=== PATIENT | male | born 1985 | race Caucasian/White ===

== ENCOUNTER 2021-02-15 02:45 | Inpatient (IN) | payer BC ==
[2021-02-15] MEDS ORDERED: PANTOPRAZOLE 40 MG/10 ML VIAL IVP STA (02:50)
[2021-02-15] MEDS ORDERED: MORPHINE SULFATE 4 MG/ML SYRINGE IV STA (02:50)
[2021-02-15] MEDS ORDERED: SODIUM CHLORIDE 0.9% 1,000 ML IV STA (02:50)
[2021-02-15] MEDS ORDERED: SODIUM CHLORIDE 0.9% 2,000 ML IV STA (02:50)
[2021-02-15] MEDS ORDERED: ONDANSETRON 4 MG/2 ML VIAL IVP STA (02:50)
[2021-02-15] MEDS ORDERED: SODIUM CHLORIDE 0.9% 500 ML 500 ML IV STA (02:50)
--- NOTE | 2021-02-15 02:55 | ED ---
Recheck HPI - General Stated Complaint: ABD Pain Time Seen by Provider: 02/15/21 02:48 - Related Data Previous Rx's Medication Instructions Recorded metFORMIN HCL [Glucophage] 500 mg PO BID #60 tab 05/26/16 sitaGLIPtin [Januvia] 50 mg PO DAILY #30 tab 05/26/16 Allergies Allergy/AdvReac Type Severity Reaction Status Date / Time venom-honey bee Allergy Swelling Verified 02/15/21 02:56 [bee venom (honey bee)] Review of Systems ROS Statement: Those systems with pertinent positive or pertinent negative responses have been documented in the HPI. ROS Other: All systems not noted in ROS Statement are negative. Past Medical History Past Medical History: GERD/Reflux Additional Past Medical History / Comment(s): ARTHRITIS IN NECK, HX BROKE BACK IN 3 PLACES(NO SX),BROKE JULIAN WRISTS(CASTED), BROKE RT COLLAR BONE, "HEART BURN", "MIGRAINES", History of Any Multi-Drug Resistant Organisms: None Reported Past Surgical History: No Surgical Hx Reported Additional Past Surgical History / Comment(s): WISDOM TEETH EXTRACTED. Past Anesthesia/Blood Transfusion Reactions: No Reported Reaction Past Psychological History: No Psychological Hx Reported Additional Psychological History / Comment(s): PT LIVES WITH GIRL ELEONORA AND HIS 5 YEAR OLD SON. 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 Past Alcohol Use History: Occasional Past Drug Use History: Marijuana Additional Drug Use History / Comment(s): QUIT MARJUANA 2 YEARS AGO - Past Family History Mother Family Medical History: Diabetes Mellitus Additional Family Medical History / Comment(s): VERY SENSATIVE TO INSULIN Father Additional Family Medical History / Comment(s): GRANDFATHER HAD KIDNEY DISEASE Course Vital Signs 02/15/21 02/15/21 02/15/21 02:47 03:30 04:00 Temperature 97.9 F Pulse Rate 125 H 128 H 112 H Respiratory 28 H 18 18 Rate Blood Pressure 116/78 118/76 122/72 O2 Sat by Pulse 95 98 98 Oximetry Medical Decision Making - Lab Data Result diagrams: 02/15/21 03:17 02/15/21 03:17 Lab Results 02/15/21 02/15/21 02/15/21 Range/Units 02:54 03:17 03:17 WBC 24.1 H (3.8-10.6) k/uL RBC 4.89 (4.30-5.90) m/uL Hgb 14.8 (13.0-17.5) gm/dL Hct 48.4 (39.0-53.0) % MCV 98.9 (80.0-100.0) fL MCH 30.3 (25.0-35.0) pg MCHC 30.6 L (31.0-37.0) g/dL RDW 13.0 (11.5-15.5) % Plt Count 340 (150-450) k/uL MPV 7.1 Neutrophils % 83 % Lymphocytes % 12 % Monocytes % 4 % Eosinophils % 0 % Basophils % 0 % Neutrophils # 20.1 H (1.3-7.7) k/uL Lymphocytes # 2.9 (1.0-4.8) k/uL Monocytes # 0.9 (0-1.0) k/uL Eosinophils # 0.0 (0-0.7) k/uL Basophils # 0.1 (0-0.2) k/uL Hypochromasia Marked Sodium (137-145) mmol/L Potassium (3.5-5.1) mmol/L Chloride (98-107) mmol/L Carbon Dioxide (22-30) mmol/L Anion Gap mmol/L BUN (9-20) mg/dL Creatinine (0.66-1.25) mg/dL Est GFR (CKD-EPI)AfAm (>60 ml/min/1.73 sqM) Est GFR (CKD-EPI)NonAf (>60 ml/min/1.73 sqM) Glucose (74-99) mg/dL POC Glucose (mg/dL) 561 H (75-99) mg/dL POC Glu Cylinder Head Assembler ID Marino Finley Plasma Lactic Acid Johny (0.7-2.0) mmol/L Calcium (8.4-10.2) mg/dL Total Bilirubin (0.2-1.3) mg/dL AST (17-59) U/L ALT (4-49) U/L Alkaline Phosphatase (38-126) U/L Total Protein (6.3-8.2) g/dL Albumin (3.5-5.0) g/dL Amylase (30-110) U/L Lipase (23-300) U/L Urine Color Light Yellow Urine Appearance Clear (Clear) Urine pH 5.0 (5.0-8.0) Ur Specific [place] 1.020 (1.001-1.035) Urine Protein Trace H (Negative) Urine Glucose (UA) 4+ H (Negative) Urine Ketones 4+ H (Negative) Urine Blood Small H (Negative) Urine Nitrite Negative (Negative) Urine Bilirubin Negative (Negative) Urine Urobilinogen <2.0 (<2.0) mg/dL Ur Leukocyte Esterase Negative (Negative) Urine WBC <1 (0-5) /hpf Ur Squamous Epith Cells <1 (0-4) /hpf Urine Mucus Rare H (None) /hpf Serum Alcohol mg/dL Acetone, Qual (Negative) 02/15/21 02/15/21 Range/Units 03:17 03:17 WBC (3.8-10.6) k/uL RBC (4.30-5.90) m/uL Hgb (13.0-17.5) gm/dL Hct (39.0-53.0) % MCV (80.0-100.0) fL MCH (25.0-35.0) pg MCHC (31.0-37.0) g/dL RDW (11.5-15.5) % Plt Count (150-450) k/uL MPV Neutrophils % % Lymphocytes % % Monocytes % % Eosinophils % % Basophils % % Neutrophils # (1.3-7.7) k/uL Lymphocytes # (1.0-4.8) k/uL Monocytes # (0-1.0) k/uL Eosinophils # (0-0.7) k/uL Basophils # (0-0.2) k/uL Hypochromasia Sodium 138 (137-145) mmol/L Potassium 6.7 H* (3.5-5.1) mmol/L Chloride 96 L (98-107) mmol/L Carbon Dioxide 5 L* (22-30) mmol/L Anion Gap 37 mmol/L BUN 25 H (9-20) mg/dL Creatinine 2.29 H (0.66-1.25) mg/dL Est GFR (CKD-EPI)AfAm 42 (>60 ml/min/1.73 sqM) Est GFR (CKD-EPI)NonAf 36 (>60 ml/min/1.73 sqM) Glucose 548 H* (74-99) mg/dL POC Glucose (mg/dL) (75-99) mg/dL POC Glu Cylinder Head Assembler ID Plasma Lactic Acid Johny 6.4 H* (0.7-2.0) mmol/L Calcium 9.8 (8.4-10.2) mg/dL Total Bilirubin 0.5 (0.2-1.3) mg/dL AST 39 (17-59) U/L ALT 45 (4-49) U/L Alkaline Phosphatase 189 H (38-126) U/L Total Protein 8.7 H (6.3-8.2) g/dL Albumin 5.8 H (3.5-5.0) g/dL Amylase 58 (30-110) U/L Lipase 103 (23-300) U/L Urine Color Urine Appearance (Clear) Urine pH (5.0-8.0) Ur Specific [place] (1.001-1.035) Urine Protein (Negative) Urine Glucose (UA) (Negative) Urine Ketones (Negative) Urine Blood (Negative) Urine Nitrite (Negative) Urine Bilirubin (Negative) Urine Urobilinogen (<2.0) mg/dL Ur Leukocyte Esterase (Negative) Urine WBC (0-5) /hpf Ur Squamous Epith Cells (0-4) /hpf Urine Mucus (None) /hpf Serum Alcohol <10 mg/dL Acetone, Qual Positive (Negative) - EKG Data -: EKG Interpreted by Me (EKG sinus tachycardia 141 WI 148 QRS 90 QTC 462) Disposition Clinical Impression: DKA (diabetic ketoacidosis), Acute hyperglycemia Disposition: ADMITTED IP TO THIS HOSP Condition: Serious Is patient prescribed a controlled substance at d/c from ED?: No
[2021-02-15 03:06] LABS: Glucose,Whole Blood 561 mg/dL (75-99)
[2021-02-15] MEDS ORDERED: LORazepam 2 MG/ML INJ IV STA (03:07)
[2021-02-15 03:27] LABS: Basophils # (A) 0.1 k/uL (0-0.2); Basophils % (A) 0 %; Eosinophils % (A) 0 %; HCT 48.4 % (39.0-53.0); HGB 14.8 gm/dL (13.0-17.5); Hypochromasia Marked; Lymphocytes # (A) 2.9 k/uL (1.0-4.8); Lymphocytes % (A) 12 %; MCH 30.3 pg (25.0-35.0); MCHC 30.6 g/dL (31.0-37.0); MCV 98.9 fL (80.0-100.0); Mean Platelet Volume 7.1; Monocytes # (A) 0.9 k/uL (0-1.0); Monocytes % (A) 4 %; Neutrophils # (A) 20.1 k/uL (1.3-7.7); Neutrophils % (A) 83 %; Platelet Count 340 k/uL (150-450); RBC 4.89 m/uL (4.30-5.90); WBC 24.1 k/uL (3.8-10.6)
[2021-02-15 03:28] LABS: Appearance,Urine Clear (Clear); Bilirubin,Urine Negative (Negative); Blood,Urine Small (Negative); Color,Urine Light Yellow; Glucose,Urine (UA) 4+ (Negative); Leukocyte Esterase,Urine Negative (Negative); Mucus,Urine Rare /hpf; Nitrite,Urine Negative (Negative); Protein,Urine Trace (Negative); Squamous Epithelial Cell,Urine <1 /hpf (0-4); Urobilinogen,Urine <2.0 mg/dL (<2.0); WBC,Urine <1 /hpf (0-5)
[2021-02-15 03:40] LABS: AST 39 U/L (17-59); African American GFR (CKD) 42 (>60 ml/min/1.73 sqM); Albumin 5.8 g/dL (3.5-5.0); Alcohol <10 mg/dL; Alkaline Phosphatase 189 U/L (38-126); Amylase 58 U/L (30-110); Anion Gap 37 mmol/L; Blood Urea Nitrogen 25 mg/dL (9-20); Calcium 9.8 mg/dL (8.4-10.2); Chloride 96 mmol/L (98-107); Lipase 103 U/L (23-300); Non-African American GFR(CKD) 36 (>60 ml/min/1.73 sqM); Sodium 138 mmol/L (137-145); Total Bilirubin 0.5 mg/dL (0.2-1.3); Total Protein 8.7 g/dL (6.3-8.2)
[2021-02-15 03:48] LABS: Ketones,Urine 4+ (Negative)
[2021-02-15 03:54] LABS: ALT 45 U/L (4-49)
[2021-02-15 03:57] LABS: Carbon Dioxide 5 mmol/L (22-30); Glucose 548 mg/dL (74-99)
[2021-02-15 03:59] LABS: Potassium 6.7 mmol/L (3.5-5.1)
--- NOTE | 2021-02-15 04:39 | CT ---
EXAMINATION TYPE: CT abdomen pelvis wo con DATE OF EXAM: 02/15/2021 COMPARISON: None HISTORY: hyperglycemia CT DLP: 518.8 mGycm Automated exposure control for dose reduction was used. Images obtained from the diaphragm to the floor the pelvis with no contrast. Lung bases are clear. There is no pleural effusion. Heart size is normal. There is no pericardial eff usion. There is dilated fluid-filled stomach. Liver and spleen are intact. There is no pancreatic mas s. The bile ducts are not dilated. Gallbladder appears normal. There is no adrenal mass. Kidneys have normal size and contour. There is no hydronephrosis. Ureters a re not dilated. There is no retroperitoneal adenopathy. Bladder distends smoothly. There is no inguin al hernia. There is no free fluid in the pelvis. I see no pelvic mass. Appendix is posterior and appe ars normal. There is no mesenteric edema. There is no ascites or free air. There is no evidence of a bowel obstru ction. The lumbar vertebra have normal alignment. Posterior elements are intact. There is slight anterior we dging of T10 and T9 vertebra of 10%. This appears old. The bony pelvis is intact. Hip joints are inta ct. IMPRESSION: Normal appendix. Dilated stomach. Gastric outlet obstruction is possible.
[2021-02-15] MEDS ORDERED: INSULIN REGULAR BOLUS (FROM DRIP BAG) IV ONE (04:41)
[2021-02-15] MEDS ORDERED: SODIUM CHLORIDE 0.9% 1,000 ML IV ONE (04:41)
[2021-02-15] MEDS ORDERED: NALOXONE 0.4 MG/ML 1 ML VIAL IV PRN (04:49)
[2021-02-15] MEDS ORDERED: MORPHINE SULFATE 4 MG/ML SYRINGE IV PRN (04:49)
[2021-02-15] MEDS ORDERED: ONDANSETRON 4 MG/2 ML VIAL IVP PRN (04:49)
[2021-02-15] MEDS ORDERED: INSULIN REGULAR 100 UNIT in SODIUM CHLORIDE 0.9% 100 ML IV SCH (05:00)
[2021-02-15 05:30] LABS: Glucose,Whole Blood 212 mg/dL (75-99)
[2021-02-15 05:30] LABS: Glucose,Whole Blood 228 mg/dL (75-99)
[2021-02-15] MEDS ORDERED: D5-0.45% NACL WITH KCL 20MEQ/L 1,000 ML IV SCH (06:00)
[2021-02-15] MEDS: SODIUM CHLORIDE 0.9% 1,000 ML IV SCH ×6 (06:01→23:45)
[2021-02-15 06:07] LABS: Glucose,Whole Blood 184 mg/dL (75-99)
[2021-02-15 07:16] LABS: Glucose,Whole Blood 140 mg/dL (75-99)
[2021-02-15 07:59] LABS: Glucose,Whole Blood 119 mg/dL (75-99)
[2021-02-15 09:00] LABS: Glucose,Whole Blood 99 mg/dL (75-99)
[2021-02-15 09:57] LABS: Glucose,Whole Blood 86 mg/dL (75-99)
[2021-02-15 10:02] LABS: Phosphorus 3.5 mg/dL (2.5-4.5); Potassium 4.4 mmol/L (3.5-5.1)
[2021-02-15] MEDS: D5-0.9% NACL WITH KCL 20 MEQ/L 1,000 ML IV SCH ×3 (10:30→23:45)
[2021-02-15] MEDS: PANTOPRAZOLE 40 MG/10 ML VIAL IV SCH (10:35)
[2021-02-15 11:03] LABS: Glucose,Whole Blood 92 mg/dL (75-99)
[2021-02-15 11:58] LABS: Glucose,Whole Blood 104 mg/dL (75-99)
[2021-02-15 11:59] LABS: African American GFR (CKD) >90 (>60 ml/min/1.73 sqM); Anion Gap 13 mmol/L; Blood Urea Nitrogen 18 mg/dL (9-20); Carbon Dioxide 15 mmol/L (22-30); Chloride 106 mmol/L (98-107); Glucose 96 mg/dL (74-99); Non-African American GFR(CKD) >90 (>60 ml/min/1.73 sqM); Phosphorus 3.8 mg/dL (2.5-4.5); Potassium 4.6 mmol/L (3.5-5.1); Sodium 134 mmol/L (137-145)
[2021-02-15 12:55] LABS: Glucose,Whole Blood 129 mg/dL (75-99)
[2021-02-15 13:22] LABS: Glucose,Whole Blood 131 mg/dL (75-99)
--- NOTE | 2021-02-15 14:15 | P.HPIM ---
History of Present Illness 35-year-old male came in with severe abdominal pain in the epigastric area and nausea vomiting found to be in diabetic ketoacidosis. Patient states that his complaint with his insulin but the insulin he was taking for last few days may not be effective as a it was in the lunch box which was heated up because of the summer weather. Patient is found to have acute renal failure and severe anion gap metabolic acidosis elevated potassium. Patient is in the care protocol. Patient blood sugars are bit low now patient was transitioned to D5 normal saline with the potassium supplementation as potassium has gone down and presently 4.6. Patient usually uses long-acting insulin about 39 units along with carb counting with each meal. Patient was tachycardic yesterday second secondary to severe dehydration from a diabetic ketoacidosis presently improved. REVIEW OF SYSTEMS: CONSTITUTIONAL: No fever, no malaise, no fatigue. HEENT: No recent visual problems or hearing problems. Denied any sore throat. CARDIOVASCULAR: No chest pain, orthopnea, PND, no palpitations, no syncope. PULMONARY: No shortness of breath, no cough, no hemoptysis. GASTROINTESTINAL: As mentioned in HPI NEUROLOGICAL: No headaches, no weakness, no numbness. HEMATOLOGICAL: Denies any bleeding or petechiae. GENITOURINARY: Denies any burning micturition, frequency, or urgency. MUSCULOSKELETAL/RHEUMATOLOGICAL: Denies any joint pain, swelling, or any muscle pain. ENDOCRINE: Denies any polyuria or polydipsia. The rest of the 14-point review of systems is negative. PHYSICAL EXAMINATION: GENERAL: The patient is alert and oriented x3, not in any acute distress. Well developed, well nourished. HEENT: Pupils are round and equally reacting to light. EOMI. No scleral icterus. No conjunctival pallor. Normocephalic, atraumatic. No pharyngeal erythema. No thyromegaly. CARDIOVASCULAR: S1 and S2 present. No murmurs, rubs, or gallops. PULMONARY: Chest is clear to auscultation, no wheezing or crackles. ABDOMEN: Soft, nontender, nondistended, normoactive bowel sounds. No palpable organomegaly. MUSCULOSKELETAL: No joint swelling or deformity. EXTREMITIES: No cyanosis, clubbing, or pedal edema. NEUROLOGICAL: Gross neurological examination did not reveal any focal deficits. SKIN: No rashes. Assessment and plan -Diabetic ketoacidosis: Patient will continue on DKA protocol patient blood sugars are low but still has anion gap because of which will continue with her D5 normal saline with a hiatal rule out an insulin infusion. Once the gap resolves patient will be transitioned to subcutaneous insulin and patient can be started on diet at the time -Hyperkalemia secondary to metabolic acidosis which resolved with the resolution of metabolic acidosis -Anion gap metabolic ACIDOSIS secondary to lactic acidosis and diabetic acidosis -Acute renal failure secondary to severe dehydration from DKA., Improved with IV fluids -Nicotine abuse: Counseling was provided -Abdominal pain secondary to diabetic ketoacidosis DVT prophylaxis: Early ambulation, GI prophylaxis Protonix Past Medical History Past Medical History: GERD/Reflux Additional Past Medical History / Comment(s): ARTHRITIS IN NECK, HX BROKE BACK IN 3 PLACES(NO SX),BROKE JULIAN WRISTS(CASTED), BROKE RT COLLAR BONE, "HEART BURN", "MIGRAINES", History of Any Multi-Drug Resistant Organisms: None Reported Past Surgical History: No Surgical Hx Reported Additional Past Surgical History / Comment(s): WISDOM TEETH EXTRACTED. Past Anesthesia/Blood Transfusion Reactions: No Reported Reaction Past Psychological History: No Psychological Hx Reported Additional Psychological History / Comment(s): PT LIVES WITH GIRL ELEONORA AND HIS 5 YEAR OLD SON. 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 Past Alcohol Use History: Occasional Past Drug Use History: Marijuana Additional Drug Use History / Comment(s): QUIT MARJUANA 2 YEARS AGO - Past Family History Mother Family Medical History: Diabetes Mellitus Additional Family Medical History / Comment(s): VERY SENSATIVE TO INSULIN Father Additional Family Medical History / Comment(s): GRANDFATHER HAD KIDNEY DISEASE Medications and Allergies Home Medications Medication Instructions Recorded Confirmed Type Insulin Aspart [NovoLOG Flexpen] See Protocol SQ AC-TID 02/15/21 02/15/21 History Insulin Degludec [Tresiba 30 units SQ HS 02/15/21 02/15/21 History Flextouch U-100] Allergies Allergy/AdvReac Type Severity Reaction Status Date / Time venom-honey bee Allergy Swelling Verified 02/15/21 06:59 [bee venom (honey bee)] Physical Exam Vitals: Vital Signs Temp Pulse Resp BP Pulse Ox 02/15/21 12:59 90 20 123/72 97 02/15/21 11:58 87 22 131/78 99 02/15/21 11:03 98 22 115/74 97 02/15/21 09:59 98.7 F 89 20 124/85 99 02/15/21 09:03 94 24 124/76 98 02/15/21 08:00 98 24 140/84 96 02/15/21 07:16 103 H 18 143/83 98 02/15/21 04:00 112 H 18 122/72 98 02/15/21 03:30 128 H 18 118/76 98 02/15/21 02:47 97.9 F 125 H 28 H 116/78 95 Intake and Output 02/14/21 02/15/21 02/15/21 22:59 06:59 14:59 Intake Total 13.765 Balance 13.765 Intake: Intake, IV Titration 13.765 Amount Insulin Regular 100 unit 13.765 In Sodium Chloride 0.9% 100 ml @ 0.1 UNITS/KG/HR 8.246 mls/hr IV [id number] Rx#:[id number] Other: Weight 81.647 kg Results CBC & Chem 7: 02/15/21 03:17 02/15/21 11:38 Labs: Abnormal Lab Results - Last 24 Hours (Table) 02/15/21 02/15/21 02/15/21 Range/Units 02:54 03:17 03:17 WBC 24.1 H (3.8-10.6) k/uL MCHC 30.6 L (31.0-37.0) g/dL Neutrophils # 20.1 H (1.3-7.7) k/uL Sodium (137-145) mmol/L Potassium (3.5-5.1) mmol/L Chloride (98-107) mmol/L Carbon Dioxide (22-30) mmol/L BUN (9-20) mg/dL Creatinine (0.66-1.25) mg/dL Glucose (74-99) mg/dL POC Glucose (mg/dL) 561 H (75-99) mg/dL Plasma Lactic Acid Johny (0.7-2.0) mmol/L Alkaline Phosphatase (38-126) U/L Total Protein (6.3-8.2) g/dL Albumin (3.5-5.0) g/dL Urine Protein Trace H (Negative) Urine Glucose (UA) 4+ H (Negative) Urine Ketones 4+ H (Negative) Urine Blood Small H (Negative) Urine Mucus Rare H (None) /hpf 02/15/21 02/15/21 02/15/21 Range/Units 03:17 03:17 05:26 WBC (3.8-10.6) k/uL MCHC (31.0-37.0) g/dL Neutrophils # (1.3-7.7) k/uL Sodium (137-145) mmol/L Potassium 6.7 H* (3.5-5.1) mmol/L Chloride 96 L (98-107) mmol/L Carbon Dioxide 5 L* (22-30) mmol/L BUN 25 H (9-20) mg/dL Creatinine 2.29 H (0.66-1.25) mg/dL Glucose 548 H* (74-99) mg/dL POC Glucose (mg/dL) 228 H (75-99) mg/dL Plasma Lactic Acid Johny 6.4 H* (0.7-2.0) mmol/L Alkaline Phosphatase 189 H (38-126) U/L Total Protein 8.7 H (6.3-8.2) g/dL Albumin 5.8 H (3.5-5.0) g/dL Urine Protein (Negative) Urine Glucose (UA) (Negative) Urine Ketones (Negative) Urine Blood (Negative) Urine Mucus (None) /hpf 02/15/21 02/15/21 02/15/21 Range/Units 05:28 06:05 07:06 WBC (3.8-10.6) k/uL MCHC (31.0-37.0) g/dL Neutrophils # (1.3-7.7) k/uL Sodium (137-145) mmol/L Potassium (3.5-5.1) mmol/L Chloride (98-107) mmol/L Carbon Dioxide (22-30) mmol/L BUN (9-20) mg/dL Creatinine (0.66-1.25) mg/dL Glucose (74-99) mg/dL POC Glucose (mg/dL) 212 H 184 H 140 H (75-99) mg/dL Plasma Lactic Acid Johny (0.7-2.0) mmol/L Alkaline Phosphatase (38-126) U/L Total Protein (6.3-8.2) g/dL Albumin (3.5-5.0) g/dL Urine Protein (Negative) Urine Glucose (UA) (Negative) Urine Ketones (Negative) Urine Blood (Negative) Urine Mucus (None) /hpf 02/15/21 02/15/21 02/15/21 Range/Units 07:57 08:40 11:38 WBC (3.8-10.6) k/uL MCHC (31.0-37.0) g/dL Neutrophils # (1.3-7.7) k/uL Sodium 134 L 134 L (137-145) mmol/L Potassium (3.5-5.1) mmol/L Chloride (98-107) mmol/L Carbon Dioxide 13 L 15 L (22-30) mmol/L BUN 22 H (9-20) mg/dL Creatinine 1.26 H (0.66-1.25) mg/dL Glucose 108 H (74-99) mg/dL POC Glucose (mg/dL) 119 H (75-99) mg/dL Plasma Lactic Acid Johny (0.7-2.0) mmol/L Alkaline Phosphatase (38-126) U/L Total Protein (6.3-8.2) g/dL Albumin (3.5-5.0) g/dL Urine Protein (Negative) Urine Glucose (UA) (Negative) Urine Ketones (Negative) Urine Blood (Negative) Urine Mucus (None) /hpf 02/15/21 02/15/21 02/15/21 Range/Units 11:56 12:55 13:20 WBC (3.8-10.6) k/uL MCHC (31.0-37.0) g/dL Neutrophils # (1.3-7.7) k/uL Sodium (137-145) mmol/L Potassium (3.5-5.1) mmol/L Chloride (98-107) mmol/L Carbon Dioxide (22-30) mmol/L BUN (9-20) mg/dL Creatinine (0.66-1.25) mg/dL Glucose (74-99) mg/dL POC Glucose (mg/dL) 104 H 129 H 131 H (75-99) mg/dL Plasma Lactic Acid Johny (0.7-2.0) mmol/L Alkaline Phosphatase (38-126) U/L Total Protein (6.3-8.2) g/dL Albumin (3.5-5.0) g/dL Urine Protein (Negative) Urine Glucose (UA) (Negative) Urine Ketones (Negative) Urine Blood (Negative) Urine Mucus (None) /hpf
[2021-02-15 14:39] LABS: African American GFR (CKD) >90 (>60 ml/min/1.73 sqM); Anion Gap 11 mmol/L; Blood Urea Nitrogen 17 mg/dL (9-20); Calcium 8.7 mg/dL (8.4-10.2); Carbon Dioxide 15 mmol/L (22-30); Chloride 106 mmol/L (98-107); Glucose 154 mg/dL (74-99); Non-African American GFR(CKD) >90 (>60 ml/min/1.73 sqM); Potassium 4.5 mmol/L (3.5-5.1); Sodium 132 mmol/L (137-145)
[2021-02-15 14:50] VITALS: BMI 25.8
[2021-02-15 14:51] LABS: Glucose,Whole Blood 162 mg/dL (75-99)
[2021-02-15] MEDS: INSULIN ASPART (NovoLOG) 100 UNIT/ML VIAL SQ SCH ×3 (15:00→20:29)
[2021-02-15 16:52] LABS: Glucose,Whole Blood 242 mg/dL (75-99)
[2021-02-15 19:15] LABS: Glucose,Whole Blood 258 mg/dL (75-99)
[2021-02-15 20:20] LABS: Glucose,Whole Blood 189 mg/dL (75-99)
[2021-02-15] MEDS ORDERED: INSULIN DETEMIR (LEVEMIR) 100 UNIT/ML SYR SQ SCH (21:00)
[2021-02-15 23:50] VITALS: RESP 16
[2021-02-16 02:01] LABS: Glucose,Whole Blood 42 mg/dL (75-99)
[2021-02-16 02:26] LABS: Glucose,Whole Blood 42 mg/dL (75-99)
[2021-02-16 02:30] LABS: Glucose,Whole Blood 57 mg/dL (75-99)
[2021-02-16 02:55] LABS: Glucose,Whole Blood 65 mg/dL (75-99)
[2021-02-16 03:01] LABS: Glucose,Whole Blood 86 mg/dL (75-99)
[2021-02-16 07:29] LABS: Glucose,Whole Blood 329 mg/dL (75-99)
[2021-02-16] MEDS: INSULIN ASPART (NovoLOG) 100 UNIT/ML VIAL SQ SCH ×2 (07:30→09:07)
[2021-02-16] MEDS: PANTOPRAZOLE 40 MG/10 ML VIAL IV SCH (09:39)
[2021-02-16] MEDS: SODIUM CHLORIDE 0.9% 1,000 ML IV SCH (09:40)
[2021-02-16 09:42] LABS: Basophils % (A) 0 %; Eosinophils % (A) 0 %; HCT 39.1 % (39.0-53.0); HGB 12.4 gm/dL (13.0-17.5); Lymphocytes # (A) 2.4 k/uL (1.0-4.8); Lymphocytes % (A) 28 %; MCH 28.8 pg (25.0-35.0); MCHC 31.8 g/dL (31.0-37.0); Mean Platelet Volume 7.5; Monocytes # (A) 0.2 k/uL (0-1.0); Monocytes % (A) 2 %; Neutrophils % (A) 68 %; Platelet Count 214 k/uL (150-450); RBC 4.31 m/uL (4.30-5.90); RDW 13.5 % (11.5-15.5); WBC 8.8 k/uL (3.8-10.6)
[2021-02-16 09:47] LABS: AST 139 U/L (17-59); African American GFR (CKD) >90 (>60 ml/min/1.73 sqM); Albumin 4.2 g/dL (3.5-5.0); Alkaline Phosphatase 126 U/L (38-126); Anion Gap 13 mmol/L; Blood Urea Nitrogen 11 mg/dL (9-20); Calcium 9.8 mg/dL (8.4-10.2); Carbon Dioxide 19 mmol/L (22-30); Chloride 104 mmol/L (98-107); Glucose 200 mg/dL (74-99); Lipase 110 U/L (23-300); Non-African American GFR(CKD) >90 (>60 ml/min/1.73 sqM); Sodium 136 mmol/L (137-145); Total Bilirubin 0.4 mg/dL (0.2-1.3); Total Protein 6.7 g/dL (6.3-8.2)
[2021-02-16 09:54] LABS: ALT 58 U/L (4-49)
[2021-02-16 09:55] LABS: MCV 90.6 fL (80.0-100.0)
[2021-02-16 10:32] VITALS: BP 110/65; PULSE 87; TEMP 98
--- NOTE | 2021-02-16 11:11 | P.DS ---
Providers Date of admission: 02/15/21 04:41 Attending physician: Gregoria Montenegro Primary care physician: Kate [facility] Course: 35-year-old male came in with severe abdominal pain in the epigastric area and nausea vomiting found to be in diabetic ketoacidosis. Patient states that his complaint with his insulin but the insulin he was taking for last few days may not be effective as a it was in the lunch box which was heated up because of the summer weather. Patient is found to have acute renal failure and severe anion gap metabolic acidosis elevated potassium. Patient is in the care protocol. Patient blood sugars are bit low now patient was transitioned to D5 normal saline with the potassium supplementation as potassium has gone down and presently 4.6. Patient usually uses long-acting insulin about 39 units along with carb counting with each meal. Patient was tachycardic yesterday second secondary to severe dehydration from a diabetic ketoacidosis presently improved. 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 PHYSICAL EXAMINATION: GENERAL: The patient is alert and oriented x3, not in any acute distress. Well developed, well nourished. HEENT: Pupils are round and equally reacting to light. EOMI. No scleral icterus. No conjunctival pallor. Normocephalic, atraumatic. No pharyngeal erythema. No thyromegaly. CARDIOVASCULAR: S1 and S2 present. No murmurs, rubs, or gallops. PULMONARY: Chest is clear to auscultation, no wheezing or crackles. ABDOMEN: Soft, nontender, nondistended, normoactive bowel sounds. No palpable organomegaly. MUSCULOSKELETAL: No joint swelling or deformity. EXTREMITIES: No cyanosis, clubbing, or pedal edema. NEUROLOGICAL: Gross neurological examination did not reveal any focal deficits. SKIN: No rashes. Assessment and plan -Diabetic ketoacidosis: All the and this is secondary to noncompliance with medications. Patient will be discharged today on home regimen. -Hyperkalemia secondary to metabolic acidosis which resolved with the resolution of metabolic acidosis -Anion gap metabolic ACIDOSIS secondary to lactic acidosis and diabetic acidosis -Acute renal failure secondary to severe dehydration from DKA., Improved with IV fluids -Nicotine abuse: Counseling was provided Leukocytosis reactive from DKA which resolved at this time no evidence of infection at this time. -Abdominal pain secondary to diabetic ketoacidosis Patient Condition at Discharge: Serious Plan - Discharge Summary Discharge Rx Participant: No New Discharge Prescriptions: Continue Insulin Aspart [NovoLOG Flexpen] See Protocol SQ AC-TID #10 pen Insulin Degludec [Tresiba Flextouch U-100] 30 units SQ HS #5 pen Discharge Medication List Insulin Aspart [NovoLOG Flexpen] See Protocol SQ AC-TID #10 pen 02/16/21 [Rx] Insulin Degludec [Tresiba Flextouch U-100] 30 units SQ HS #5 pen 02/16/21 [Rx] Follow up Appointment(s)/Referral(s): Kate Taylor DO [Primary Care Provider] - 3 Days Caridad Kelly MD [STAFF PHYSICIAN] - 1 Week Discharge Disposition: HOME SELF-CARE
[2021-02-16 12:13] LABS: Glucose,Whole Blood 66 mg/dL (75-99)
[2021-02-16 19:08] LABS: Hemoglobin A1C 8.6 % (4.0-6.0)
== END 2021-02-16 12:21 | disposition home or self-care (01) | DRG 638 ==
LOC: EC 02:45 → 3SCARD 04:41
PROVIDERS: ADMIT Hospitalist; ATTEND Hospitalist
DX: E11.10 Type 2 diabetes mellitus with ketoacidosis without coma (principal); N17.9 Acute kidney failure, unspecified; Z79.4 Long term (current) use of insulin; E86.0 Dehydration; E87.5 Hyperkalemia; K21.9 Gastro-esophageal reflux disease without esophagitis; M19.90 Unspecified osteoarthritis, unspecified site; T38.3X6A Underdosing of insulin and oral hypoglycemic [antidiabetic] drugs, initial encounter; Z91.128 Patient's intentional underdosing of medication regimen for other reason; F17.200 Nicotine dependence, unspecified, uncomplicated; Z71.6 Tobacco abuse counseling; Z87.81 Personal history of (healed) traumatic fracture; Z86.69 Personal history of other diseases of the nervous system and sense organs; Z83.3 Family history of diabetes mellitus; Z84.1 Family history of disorders of kidney and ureter; Z91.030 Bee allergy status
CPT/HCPCS: 36415; 74176; 80048; 80051; 80053; 80320; 81001; 82009; 82150; 82565; 82947; 83036; 83605; 83690; 83735; 84100; 84520; 85025; 94760; 96361; 96365; 96366; 96374; 96375; 96376; 99285